=== PATIENT | female | born 1965 | race Hispanic/Latino ===

== ENCOUNTER 2024-05-15 17:57 | Emergency (ER) | payer OTHER ==
[~2024-05-15] VITALS: Ht 157.5 cm; Wt 69.4 kg
[2024-05-15 18:00] VITALS: PULSE 68; RESP 18; TEMP 100.8
[2024-05-15] MEDS ORDERED: AZITHROMYCIN250 MG PO (18:36)
[2024-05-15] MEDS ORDERED: BENZONATATE100 MG PO (18:37)
[2024-05-15] MEDS: ACETAMINOPHEN 325 MG TAB PO ONE (19:16)
[2024-05-15 19:28] VITALS: BP 124/57; PULSE 68; RESP 18; TEMP 99.3; O2SAT 98
== END 2024-05-15 19:17 | disposition home or self-care (01) ==
LOC: FSED 18:16
DX: R50.9 Fever, unspecified (principal); J40 Bronchitis, not specified as acute or chronic; R05.9 Cough, unspecified; I10 Essential (primary) hypertension; E78.00 Pure hypercholesterolemia, unspecified; R94.31 Abnormal electrocardiogram [ECG] [EKG]
CPT/HCPCS: 81003; 83518; 84484; 87400; 93005; 99284